=== PATIENT | female | born 1995 | race Two or more races ===

== ENCOUNTER 2019-07-19 23:14 | Emergency (ER) | payer BC, OTHER ==
[2019-07-20 01:26] LABS: ABSOLUTE BASOPHILS # (AUTO) 0.1 10^3/uL (0.0-0.2); ABSOLUTE EOSINOPHILS # (AUTO) 0.3 10^3/uL (0.0-0.6); ABSOLUTE MONOCYTES (AUTO) 0.5 10^3/uL (0.1-1.4); ABSOLUTE NEUT (AUTO) 4.7 10^3/uL (1.7-8.2); EOSINOPHILS % (AUTO) 3.7 % (0-6); HEMATOCRIT 37.8 % (36.0-47.0); HEMOGLOBIN 12.8 g/dL (12.0-15.5); LYMPHOCYTES % (AUTO) 34.6 % (13-45); MEAN CORPUSCULAR HEMOGLOBIN 28.1 pg (27.0-33.4); MEAN CORPUSCULAR VOLUME 83 fl (80-97); MONOCYTES % (AUTO) 6.4 % (3-13); PLATELET COUNT 307 10^3/uL (150-450); RED BLOOD COUNT 4.57 10^6/uL (3.72-5.28); RED CELL DISTRIBUTION WIDTH 13.4 % (11.5-14.0); SEGMENTED NEUTROPHILS % (AUTO) 54.3 % (42-78); TOTAL CELLS COUNTED % (AUTO) 100 %; WHITE BLOOD COUNT 8.6 10^3/uL (4.0-10.5)
[2019-07-20 01:33] LABS: APPEARANCE,URINE SLIGHTLY-CLOUDY; BILIRUBIN,URINE NEGATIVE (NEGATIVE); COLOR,URINE YELLOW; GLUCOSE, URINE 150 mg/dL (NEGATIVE); KETONES,URINE NEGATIVE (NEGATIVE); LEUKOCYTE ESTERASE,URINE NEGATIVE (NEGATIVE); NITRITE,URINE NEGATIVE (NEGATIVE); PROTEIN,URINE 100 mg/dL (NEGATIVE); URINE SPECIFIC GRAVITY 1.017; UROBILINOGEN,URINE NEGATIVE mg/dL (<2.0)
--- NOTE | 2019-07-20 03:44 | RADIOLOGY REPORT (SQ) ---
EXAM DESCRIPTION: US TRANSVAGINAL COMPLETED DATE/TME: 07/20/2019 02:05 CLINICAL HISTORY: 24 years, Female, + preg and bleeding COMPARISON: None. TECHNIQUE: Emergent ultrasound LIMITATIONS: None. FINDINGS: The uterus measures 9.6 x 5.8 x 7.1 cm. The myometrium is homogenous. There is an intrauterine gestational sac with yolk sac and pole. Heart tones obtained at 116 bpm. Current ultrasound age is 6 weeks 5 days. The maternal left ovary is not well seen likely due to its position in the pelvis. The right ovary measures 2.4 x 1.8 x 3.2 cm. Normal flow to the right ovary. No adnexal cyst or mass. No free fluid. Cervical length is 3.2 cm IMPRESSION: Single live IUP as above. Nonemergent follow-up recommended copyright 2010 [employer]- All Rights Reserved
[2019-07-20] MEDS ORDERED: ACETAMINOPHEN 325 MG TABLET PO ONE (04:16)
--- NOTE | 2019-07-20 04:21 | ER Document Report ---
ED General - General Chief Complaint: Vaginal Bleeding Stated Complaint: VAGINAL BLEEDING <12 WEEKS Time Seen by Provider: 07/20/19 02:07 Notes: Patient is a 24-year-old female presents the emergency department for vaginal bleeding while . Patient voices she thinks she is approximately 6 weeks . States she has taken multiple home tests and they were positive. States she has not yet followed up with [facility]. States today after urinating she wiped and had dark red blood on the tissue paper. States there was a scant amount of bright red blood in the toilet. Patient voices this concerned her which is why she presents to the emergency room. Patient's denying any dysuria. She states slight intermittent lower abdominal cramping. Voices she does have a history of hypertension but is currently not on any medications. Does have a h/o type 2 DM and takes metformin. TRAVEL OUTSIDE OF THE [place] IN LAST 30 DAYS: No - Related Data Allergies/Adverse Reactions: No Known Allergies Allergy (Verified 04/04/19 23:16) Home Medications: Metformin. Ventolin Past Medical History - General Information source: Patient Last Menstrual Period: 05/28/2019 - Social History Smoking Status: Never Smoker Frequency of alcohol use: None Drug Abuse: None Family History: None Patient has suicidal ideation: No Patient has homicidal ideation: No - Past Medical History Cardiac Medical History: Reports: Hx Hypertension - unmedicated Endocrine Medical History: Reports: Hx Diabetes Mellitus Type 2 Renal/ Medical History: Denies: Hx Peritoneal Dialysis Review of Systems - Review of Systems Constitutional: denies: Fever EENT: No symptoms reported Cardiovascular: No symptoms reported Respiratory: No symptoms reported Gastrointestinal: No symptoms reported Genitourinary: See HPI Female Genitourinary: See HPI Musculoskeletal: No symptoms reported Skin: No symptoms reported Hematologic/Lymphatic: No symptoms reported Neurological/Psychological: No symptoms reported Physical Exam - Vital signs Vitals: Temp Pulse Resp BP Pulse Ox 98.3 F 93 18 140/90 H 100 07/19/19 23:18 07/19/19 23:18 07/19/19 23:18 07/19/19 23:18 07/19/19 23:18 - Notes Notes: GENERAL: Alert, interacts well. No acute distress. HEAD: Normocephalic, atraumatic. EYES: Pupils equal, round, and reactive to light. Extraocular movements intact. ENT: Oral mucosa moist, tongue midline. NECK: Full range of motion. Supple. Trachea midline. LUNGS: Clear to auscultation bilaterally, no wheezes, rales, or rhonchi. No respiratory distress. HEART: Regular rate and rhythm. No murmur ABDOMEN: Soft, slight bilateral pelvic pain noted. Non-distended. Bowel sounds present in all 4 quadrants. EXTREMITIES: Moves all 4 extremities spontaneously. No edema, normal radial and dorsalis pedis pulses bilaterally. No cyanosis. BACK: no cervical, thoracic, lumbar midline tenderness. No saddle anesthesia, normal distal neurovascular exam. No CVA tenderness noted bilaterally NEUROLOGICAL: Alert and oriented x3. Normal speech. cranial nerves II through XII grossly intact. PSYCH: Normal affect, normal mood. SKIN: Warm, dry, normal turgor. No rashes or lesions noted. Course - Re-evaluation Re-evalutation: Laboratory 07/20/19 07/20/19 07/20/19 00:55 00:55 00:55 WBC 8.6 RBC 4.57 Hgb 12.8 Hct 37.8 MCV 83 MCH 28.1 MCHC 34.0 RDW 13.4 Plt Count 307 Lymph % (Auto) 34.6 Miffl[place] % (Auto) 6.4 Eos % (Auto) 3.7 Baso % (Auto) 1.0 Absolute Neuts (auto) 4.7 Absolute Lymphs (auto) 3.0 Absolute Monos (auto) 0.5 Absolute Eos (auto) 0.3 Absolute Basos (auto) 0.1 Seg Neutrophils % 54.3 Sodium Potassium Chloride Carbon Dioxide Anion Gap BUN Creatinine Est GFR ( Amer) Est GFR (MDRD) Non-Af Glucose Calcium Total Bilirubin Direct Bilirubin Neonat Total Bilirubin Neonat Direct Bilirubin Neonat Indirect Bili AST ALT Alkaline Phosphatase Total Protein Albumin Beta HCG, Quant 55882.00 H Total Beta HCG POSITIVE Urine Color YELLOW Urine Appearance SLIGHTLY-CLOUDY Urine pH 6.0 Ur Specific [place] 1.017 Urine Protein 100 H Urine Glucose (UA) 150 H Urine Ketones NEGATIVE Urine Blood MODERATE H Urine Nitrite NEGATIVE Urine Bilirubin NEGATIVE Urine Urobilinogen NEGATIVE Ur Leukocyte Esterase NEGATIVE Urine WBC (Auto) 1 Urine RBC (Auto) 3 Urine Bacteria (Auto) TRACE Squamous Epi Cells Auto 2 Urine Mucus (Auto) RARE Urine Ascorbic Acid NEGATIVE Blood Type Rhogam Indicated 07/20/19 07/20/19 00:55 03:40 WBC RBC Hgb Hct MCV MCH MCHC RDW Plt Count Lymph % (Auto) Miffl[place] % (Auto) Eos % (Auto) Baso % (Auto) Absolute Neuts (auto) Absolute Lymphs (auto) Absolute Monos (auto) Absolute Eos (auto) Absolute Basos (auto) Seg Neutrophils % Sodium 137.3 Potassium 4.0 Chloride 101 Carbon Dioxide 21 L Anion Gap 15 BUN 10 Creatinine 0.51 L Est GFR ( Amer) > 60 Est GFR (MDRD) Non-Af > 60 Glucose 173 H Calcium 10.0 Total Bilirubin 0.3 Direct Bilirubin 0.1 Neonat Total Bilirubin Not Reportable Neonat Direct Bilirubin Not Reportable Neonat Indirect Bili Not Reportable AST 25 ALT 49 Alkaline Phosphatase 70 Total Protein 7.6 Albumin 4.5 Beta HCG, Quant Total Beta HCG Urine Color Urine Appearance Urine pH Ur Specific [place] Urine Protein Urine Glucose (UA) Urine Ketones Urine Blood Urine Nitrite Urine Bilirubin Urine Urobilinogen Ur Leukocyte Esterase Urine WBC (Auto) Urine RBC (Auto) Urine Bacteria (Auto) Squamous Epi Cells Auto Urine Mucus (Auto) Urine Ascorbic Acid Blood Type O POSITIVE Rhogam Indicated RHOGAM NOT INDICATED Transvaginal US 07/20/19 02:05 IMPRESSION: Single live IUP as above. Nonemergent follow-up recommended copyright 2010 [employer] All Rights Reserved While in the emergency department patient is denying any further bleeding. States she did place a panty liner but does not have any blood on it. Discussed with patient need for close follow-up with [facility] as patient does have a history of diabetes and hypertension. Proteinuria seen on urine. Discussed with her [facility] in our area. Patient stable for discharge. 07/20/19 05:15 - Vital Signs Vital signs: Temp Pulse Resp BP Pulse Ox 98.3 F 90 18 138/72 H 97 07/19/19 23:18 07/20/19 04:44 07/20/19 04:44 07/20/19 04:32 07/20/19 04:44 - Laboratory Result Diagrams: 07/20/19 00:55 07/20/19 00:55 Laboratory results interpreted by me: 07/20/19 07/20/19 07/20/19 00:55 00:55 00:55 Carbon Dioxide 21 L Creatinine 0.51 L Glucose 173 H Beta HCG, Quant 36402.00 H Urine Protein 100 H Urine Glucose (UA) 150 H Urine Blood MODERATE H Discharge - Discharge Clinical Impression: Vaginal bleeding during Condition: Stable Disposition: HOME, SELF-CARE Instructions: Bleeding During Early ([facility]) Additional Instructions: As we discussed you have been seen and treated in the emergency department for bleeding during early . At this point time ultrasound is within normal limits. You do need to follow-up with [facility] as soon as possible based on your history of diabetes and hypertension. Please also return to the emergency department should you have any concerns. Referrals: CHELLY YE MD [ACTIVE STAFF] - Follow up as needed
[2019-07-20 05:05] LABS: ALBUMIN 4.5 g/dL (3.5-5.0); ALKALINE PHOSPHATASE 70 U/L (38-126); ANION GAP 15 (5-19); ASPARTATE AMINO TRANSFERASE 25 U/L (14-36); BILIRUBIN,DIRECT 0.1 mg/dL (0.0-0.4); BILIRUBIN,TOTAL 0.3 mg/dL (0.2-1.3); BLOOD UREA NITROGEN 10 mg/dL (7-20); CARBON DIOXIDE 21 mmol/L (22-30); CHLORIDE 101 mmol/L (98-107); GLUCOSE 173 mg/dL (75-110); TOTAL PROTEIN 7.6 g/dL (6.3-8.2)
[2019-07-20 05:31] VITALS: BP 124/72
== END 2019-07-20 05:40 | disposition home or self-care (01) ==
LOC: ER 23:14
DX: O20.9 Hemorrhage in early pregnancy, unspecified (principal); O26.891 Other specified pregnancy related conditions, first trimester; R10.2 Pelvic and perineal pain; O16.1 Unspecified maternal hypertension, first trimester; O24.111 Pre-existing type 2 diabetes mellitus, in pregnancy, first trimester; E11.9 Type 2 diabetes mellitus without complications; Z79.84 Long term (current) use of oral hypoglycemic drugs; Z79.899 Other long term (current) drug therapy; Z3A.01 Less than 8 weeks gestation of pregnancy
CPT/HCPCS: 36415; 76817; 80053; 81001; 84702; 85025; 86900; 86901; 87086; 93976; 99284

== ENCOUNTER 2019-11-19 23:59 | Emergency (ER) | payer BC, OTHER ==
[2019-11-20 00:30] VITALS: BP 125/85
[2019-11-20] MEDS ORDERED: SILVER SULFADIAZINE 1% CREAM 25 GM TP ONE (00:43)
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
== END 2019-11-20 03:00 | disposition left against medical advice (07) ==
LOC: ER 23:59
DX: Z53.21 Procedure and treatment not carried out due to patient leaving prior to being seen by health care provider (principal)
CPT/HCPCS: 99281